=== PATIENT | female | born 1960 | race Caucasian/White ===

== ENCOUNTER 2017-06-27 11:29 | Emergency (ER) | payer SELFPAY ==
[~2017-06-27 11:29] MED LIST: CYCL10TA2 PO; GABA-587 PO; GABA800T2 PO; HYDR-2762 PO
[2017-06-27 12:16] VITALS: BP 161/105
[2017-06-27] MEDS ORDERED: ACYCLOVIR 200 MG CAPSULE. PO STA (12:33)
[2017-06-27] MEDS ORDERED: LIDOCAINE 1% PF 2 ML VIAL. INJ ONE (12:45)
[2017-06-27] MEDS ORDERED: predniSONE 20 MG TABLET PO ONE (12:45)
[2017-06-27] MEDS ORDERED: cefTRIAXone IM 1 GM VIAL IM ONE (12:45)
[2017-06-27] MEDS ORDERED: PRED50TA PO (13:41)
[2017-06-27] MEDS ORDERED: CETI10TA22 PO (13:41)
[2017-06-27] MEDS ORDERED: ACYC800T PO (13:41)
--- NOTE | 2017-06-27 13:42 | PHYS DOC ---
Past Medical History Past Medical History: Other Additional Past Medical Histor: CHRONIC BACK PAIN Past Surgical History: Other Additional Past Surgical Histo: NECK Alcohol Use: Occasionally Drug Use: None Adult General Chief Complaint Chief Complaint: SKIN PROBLEM HPI HPI Patient is a 57 year old female who presents with a rash on her right cheek that began 2 days ago. Patient denies any known source for this rash. She states the rash is very painful. She is also complaining of sinus congestion for 2 days. Patient states she is going through a lot of stress right now. She states she is going through a divorce after years of marriage. Review of Systems Review of Systems Constitutional: Denies fever or chills [] Eyes: Denies change in visual acuity, redness, or eye pain [] HENT: Denies nasal congestion or sore throat [] Respiratory: Sinus congestion Cardiovascular: No additional information not addressed in HPI [] GI: Denies abdominal pain, nausea, vomiting, bloody stools or diarrhea [] : Denies dysuria or hematuria [] Musculoskeletal: Denies back pain or joint pain [] Integument: rash on her right cheek Neurologic: Denies headache, focal weakness or sensory changes [] Current Medications Current Medications Current Medications Medications (Trade) Dose Ordered Sig/Gabriel Start Time Stop Time Status Last Admin Dose Admin Acyclovir (Zovirax) 800 mg 1X STAT 06/27/17 12:33 06/27/17 12:34 DC 06/27/17 12:59 800 MG Ceftriaxone Sodium (Rocephin Im) 1 gm 1X ONCE 06/27/17 12:45 06/27/17 12:46 DC 06/27/17 13:05 1 GM Lidocaine HCl (Xylocaine-Mpf 1% Vial) 2 ml 1X ONCE 06/27/17 12:45 06/27/17 12:46 DC 06/27/17 13:05 2 ML Prednisone (Prednisone) 60 mg 1X ONCE 06/27/17 12:45 06/27/17 12:46 DC 06/27/17 13:04 60 MG Allergies Allergies Allergies Coded Allergies Type Severity Reaction Last Updated Verified tetracycline Allergy Intermediate 03/23/15 Yes Physical Exam Physical Exam Constitutional: Well developed, well nourished, no acute distress, non-toxic appearance. [] HENT: Normocephalic, atraumatic, bilateral external ears normal, oropharynx moist, no oral exudates, nose normal. [] Patient is congested nasally. Mild frontal and maxillary sinus tenderness. Bilateral nasal turbinates are boggy and erythematous. Eyes: PERRLA, EOMI, conjunctiva normal, no discharge. [] Neck: Normal range of motion, no tenderness, supple, no stridor. [] Cardiovascular:Heart rate regular rhythm, no murmur [] Lungs & Thorax: Bilateral breath sounds clear to auscultation [] Abdomen: Bowel sounds normal, soft, no tenderness, no masses, no pulsatile masses. [] Skin: Patient has scattered areas of grouped erythematous rash on the right cheek suspicious of shingles Back: No tenderness, no CVA tenderness. [] Extremities: No tenderness, no cyanosis, no clubbing, ROM intact, no edema. [] Neurologic: Alert and oriented X 3, normal motor function, normal sensory function, no focal deficits noted. [] Psychologic: Affect normal, judgement normal, mood normal. [] Current Patient Data Vital Signs Vital Signs Date Time Temp Pulse Resp B/P (MAP) Pulse Ox O2 Delivery O2 Flow Rate FiO2 06/27/17 12:16 98.6 77 20 161/105 (123) 99 Room Air 98.6 EKG EKG [] Radiology/Procedures Radiology/Procedures [] Course & Med Decision Making Course & Med Decision Making Pertinent Labs and Imaging studies reviewed. (See chart for details) Patient has a rash to her right cheek suspicious of shingles. She was also given prednisone. She will be discharged with prednisone for 4 more days and instructed to take Benadryl or Zyrtec. She states she does not have any money to buy any medications. Instructed her to try and get some Benadryl as needed. Instructed her to return to the ED symptoms worsen. She also has nasal congestion. Informed her this is an upper respiratory infection and can use OTC medicines. Dragon Disclaimer Dragon Disclaimer This electronic medical record was generated, in whole or in part, using a voice recognition dictation system. Departure Departure Impression: Primary Impression: Upper respiratory infection Additional Impression: Shingles Disposition: HOME, SELF-CARE Condition: STABLE Referrals: NO PCP (PCP) follow up with your doctor in one week Patient Instructions: Shingles, [id number], Upper Respiratory Infection, Adult, [id number] Additional Instructions: You were seen with a rash on her right cheek suspicious of shingles or even insect bite. We put you on acyclovir. Take it as prescribed. You can apply some hydrocortisone cream to the area. Take the prescribed prednisone. Take over-the- counter medications for the nasal congestion/sinus congestion including Zyrtec. Follow up with your doctor in 1-2 weeks. Complete the acyclovir if you get the prescription. Scripts Acyclovir (ACYCLOVIR) 800 Mg Tablet 1 TAB PO 5XDAY, #50 TAB Prov: BRIAN CARRERA APRN 06/27/17 Cetirizine Hcl (ZYRTEC) 10 Mg Tablet 1 TAB PO DAILY, #30 TAB 0 Refills Prov: BRIAN CARRERA APRN 06/27/17 Prednisone (PREDNISONE) 50 Mg Tablet 1 TAB PO DAILY, #4 TAB Prov: RBIAN CARRERA APRN 06/27/17 Problem Qualifiers Primary Impression: Upper respiratory infection URI type: unspecified URI Qualified Codes: J06.9 - Acute upper respiratory infection, unspecified Additional Impression: Shingles Herpes zoster complications: without complications Qualified Codes: B02.9 - Zoster without complications BRIAN CARRERA APRN Jun 27, 2017 13:42
== END 2017-06-27 13:49 | disposition home or self-care (01) ==
LOC: ER 11:29
DX: B02.9 Zoster without complications (principal); J06.9 Acute upper respiratory infection, unspecified; G89.29 Other chronic pain; Z88.1 Allergy status to other antibiotic agents
CPT/HCPCS: 96372; 99283; J0696; J7512

== ENCOUNTER 2017-06-28 01:28 | Emergency (ER) | payer SELFPAY ==
[~2017-06-28] VITALS: Ht 157.5 cm; Wt 49.9 kg
[~2017-06-28 01:28] MED LIST changes: +ACYC800T PO; +CETI10TA22 PO; +PRED50TA PO
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
[2017-06-28] MEDS ORDERED: DIPHTH,PERTUSS(ACELL),TET TOX 0.5 ML DISP.SYRIN. VAX IM ONE (03:00)
--- NOTE | 2017-06-28 03:14 | RAD ---
INDICATION: Trauma COMPARISON: None. TECHNIQUE: Axial CT images obtained through the head, face and cervical spine without intravenous contrast. Coronal and sagittal reformats processed of cervical spine. One or more of the following individualized dose reduction techniques were utilized for this examination: 1. Automated exposure control; 2. Adjustment of the mA and/or kV according to patient size; 3. Use of iterative reconstruction technique. FINDINGS: Head: No intracranial hemorrhage. No midline shift. Basal cisterns patents. Ventricles and sulci are within normal limits. No acute osseous abnormality. Cervical: No definite acute fracture. No significant malalignment. No evidence of perivertebral hematoma. Anterior spinal fusion changes at C4-C6. Degenerative changes throughout the cervical spine including at C4-5 where there are large osteophytes narrowing the central canal. There are some cystic changes at right lung apex as well as mild groundglass opacity. Facial: No retro-orbital hematoma. No definite acute fracture or dislocation. Subcutaneous hematoma is suspected at the face bilaterally lateral to the orbits. IMPRESSION: No acute intracranial hemorrhage. Mild scattered foci of low-attenuation within the white matter. Nonspecific but can be seen with chronic small vessel ischemic disease. 1-2 mm high density structure is seen near foramen of Dominguez. Could be from a small calcification in the region but a tiny colloid cyst is not excluded. No definite acute fracture or dislocation of the cervical spine. Postoperative changes to the cervical spine status post anterior spinal fusion. Degenerative changes of the cervical spine including large osteophytes narrowing the central canal most severe at the C4-5 level. No definite facial fracture but there is suspected small subcutaneous hematoma. There is some cystic changes at the lung apices. Would correlate for possible causes such as mild emphysema. There is also some groundglass opacities which could be from small airway inflammation. Electronically signed by: Reid Dan MD (06/28/2017 3:11 AM) [facility]
[2017-06-28 03:15] VITALS: BP 119/76
[2017-06-28] MEDS ORDERED: ACETAMINOPHEN 500 MG TABLET PO ONE (03:45)
== END 2017-06-28 03:45 | disposition home or self-care (01) ==
LOC: ER 01:28
DX: S00.83XA Contusion of other part of head, initial encounter (principal); S80.12XA Contusion of left lower leg, initial encounter; S80.11XA Contusion of right lower leg, initial encounter; G89.29 Other chronic pain; Z88.1 Allergy status to other antibiotic agents; Y08.89XA Assault by other specified means, initial encounter; Y93.89 Activity, other specified; Y92.89 Other specified places as the place of occurrence of the external cause; Y99.8 Other external cause status
CPT/HCPCS: 70450; 70486; 72125; 90471; 90715; 99284-25

== ENCOUNTER 2017-09-19 19:40 | Emergency (ER) | payer SELFPAY ==
[~2017-09-19] VITALS: Ht 172.7 cm; Wt 49.9 kg
[2017-09-19 19:50] VITALS: BP 162/96
--- NOTE | 2017-09-19 20:37 | PHYS DOC ---
Past Medical History Past Medical History: Other Additional Past Medical Histor: CHRONIC BACK PAIN,shingles Past Surgical History: Hysterectomy, Other Additional Past Surgical Histo: NECK Alcohol Use: Occasionally Drug Use: None Adult General Chief Complaint Chief Complaint: FLU SYMPTOM HPI HPI Patient is a 57 year old female presents with nasal congestion, cough, rhinorrhea and sore throat. He also reports diffuse myalgias. No fever chills vomiting or sweats. Cough is nonproductive worse than typical smoker's cough, but does not feel short of air. No medications or therapy sticking prior to ED arrival. Review of Systems Review of Systems Review symptoms as per history of present illness. All other review symptoms are negative. All other systems were reviewed and found to be within normal limits, except as documented in this note. Allergies Allergies Allergies Coded Allergies Type Severity Reaction Last Updated Verified tetracycline Allergy Intermediate 03/23/15 Yes Physical Exam Physical Exam Constitutional: Well developed, well nourished, no acute distress, non-toxic appearance. [] HENT: Normocephalic, atraumatic, bilateral external ears normal, oropharynx moist, mild posterior pharyngeal erythema, no oral exudates, nose, congestion rhinorrhea. [] Eyes: PERRLA, EOMI, conjunctiva normal, no discharge. [] Neck: Normal range of motion, no tenderness, supple, no stridor. [] Cardiovascular:Heart rate regular rhythm, no murmur [] Lungs & Thorax: Respirations nonlabored, diminished coarse breath sounds bilaterally[] Abdomen: Bowel sounds normal, soft, no tenderness. [] Skin: Warm, dry. [] Back: No tenderness, no CVA tenderness. [] Extremities: No tenderness. [] Neurologic: Alert and oriented X 3, normal motor function, normal sensory function, no focal deficits noted. [] Psychologic: Affect normal, judgement normal, mood normal. [] Current Patient Data Vital Signs Vital Signs Date Time Temp Pulse Resp B/P (MAP) Pulse Ox O2 Delivery O2 Flow Rate FiO2 09/19/17 19:50 98.2 101 24 78 Room Air 98.2 Lab Values Laboratory Tests Test 09/19/17 20:13 Influenza Type A Antigen Negative (NEGATIVE) Influenza Type B Antigen Negative (NEGATIVE) EKG EKG [] Radiology/Procedures Radiology/Procedures [] Course & Med Decision Making Course & Med Decision Making Pertinent Labs and Imaging studies reviewed. (See chart for details) [Remains soft, nonsurgical. Patient opts mild fever while in the emergency department. Vomiting and pain control with treatment. Patient states she feels much better and is ready for discharge home. Suspect GI illness prevalent in the community. We'll treat supportively waiting and close PCP follow-up. In the meantime, patient is instructed to return to the emergency department should she develop new or concerning symptoms. Patient verbalizes understanding agreement discharge instructions prior to departure.] Dragon Disclaimer Dragon Disclaimer This electronic medical record was generated, in whole or in part, using a voice recognition dictation system. Departure Departure Impression: Primary Impression: Abdominal pain Additional Impression: Nausea vomiting and diarrhea Disposition: 01 HOME, SELF-CARE Condition: GOOD Referrals: NO PCP (PCP) Problem Qualifiers HIPOLITO HOUSTON DO Sep 19, 2017 20:37
[2017-09-19 20:45] LABS: OBC FLU VALID
--- NOTE | 2017-09-20 07:44 | RAD ---
Indication: Shortness of breath Technique: Portable AP upright chest x-ray Comparison: Previous study from 2011 Findings: Heart is normal in size. There is a lobulated radiopacity at the aortopulmonary window. Linear horizontally oriented opacity is seen in the right midlung zone. No pneumothorax or effusion. Visualized bony thorax is within normal limits. Impression: Radiopacity in the aortopulmonary window may represent aneurysm or mediastinal mass. This is new when compared to previous study from 2011. CT of the chest with IV contrast recommended.
== END 2017-09-19 20:59 | disposition home or self-care (01) ==
LOC: ER 19:40
DX: R10.9 Unspecified abdominal pain (principal); R11.2 Nausea with vomiting, unspecified; R19.7 Diarrhea, unspecified; J02.9 Acute pharyngitis, unspecified; R09.81 Nasal congestion; R05 Cough; J34.89 Other specified disorders of nose and nasal sinuses; M79.1 Myalgia; G89.29 Other chronic pain; Z90.710 Acquired absence of both cervix and uterus; Z88.1 Allergy status to other antibiotic agents
CPT/HCPCS: 71010; 87804; 99285-25